=== PATIENT | male | born 1975 | race Caucasian/White ===

== ENCOUNTER → 2025-02-28 | Outpatient (CLI) | payer OTHER ==
--- NOTE | 2025-02-28 15:45 | NM ---
EXAMINATION TYPE: NM gastric emptying static DATE OF EXAM: 02/28/2025 COMPARISON: NONE CLINICAL INDICATION: Male, 50 years old with history of R11.2 NAUSEA WITH VOMITING; Following administration of 1.9 mCi Tc 99m Sulfur Colloid with 4 OUNCES EGGS, 2 PIECES TOAST WITH BUT TER & JELLY, 8 OUNCES WATER, projection images of the abdomen were obtained 10 minutes post ingestion . Patient Emptying Values 1 Hour 5 % (70-10%) 2 Hours 10 % (> 40%) 3 Hours 25 % (> 70%) 4 Hours 51 % (> 90%) Gastroesophagel reflux: None IMPRESSION: Delayed gastric emptying times at all time points. Scintigraphic findings suggest gastroparesis. [facility], , 02/28/2025 3:42 PM
== END | disposition home or self-care (01) ==
LOC: RADNMMAIN 07:00
PROVIDERS: ATTEND Internal Medicine Gastroenterology
DX: K30 Functional dyspepsia (principal)
CPT/HCPCS: 78264; A9541